=== PATIENT | female | born 1995 | race Caucasian/White ===

== ENCOUNTER → 2020-12-12 12:26 | Outpatient (CLI) | payer OTHER, SELFPAY ==
[2020-12-12 13:41] LABS: Absolute Lymphocyte Count 2.17 X10^3/uL (0.83-4.51); Absolute Neutrophil Count 4.7 X10^3/uL (2.0-7.7); Basophil# 0.06 X10^3/uL; Basophil% 0.8 % (0-1); Eosinophil# 0.12 X10^3/uL; Eosinophils% 1.6 % (0-5); Hematocrit 43.1 % (37-47); Hemoglobin 14.4 g/dL (12.0-15.0); Lymphocyte # 2.17 X10^3/ul (0.83-4.51); Lymphocyte % 28.6 % (19-41); Mean Corp Hgb Conc 33.4 g/dL (32-36); Mean Corpuscular Hgb 29.8 pg (27.0-32.0); Mean Corpuscular Volume 89.2 fL (81-99); Mean Platelet Vol. 9.6 fl (6.2-12.0); Monocyte# 0.58 X10^3/uL; Monocyte% 7.6 % (0-10); NRBC Flagged by Analyzer 0 % (0-5); Neutrophil # 4.66 X10^3/uL (2.7-7.7); Neutrophil % 61.3 % (47-70); Platelet Count 268 K/mm3 (150-450); RBC Distribution Width CV 14.2 % (11.6-14.6); RBC Distribution Width SD 46.2 fl (35.1-43.9); Red Blood Count 4.83 M/mm3 (4.2-5.4); White Blood Count 7.6 K/mm3 (4.4-11.0)
[2020-12-12 14:26] LABS: HIV - WCH Non-Reactive (Nonreactive); Hepatitis B Surface Antigen Non-Reactive (Nonreactive); Hepatitis C Antibody Non-Reactive (Nonreactive); Rubella IgG Reactive (Nonreactive); Syphilis Antibodies Non-reactive
[2020-12-15 03:07] LABS: Chlamydia By Nucleic Acid AMP Negative (Negative)
[2020-12-15 10:22] LABS: Gonococcus By Nucleic Acid AMP Negative (Negative)
[2020-12-18 12:01] LABS: HPV Reflexed? NOT INDICATED
== END ==
PROVIDERS: Visit Provider Obstetrics & Gynecology
DX: Z34.81 Encounter for supervision of other normal pregnancy, first trimester (principal); Z12.4 Encounter for screening for malignant neoplasm of cervix; Z11.3 Encounter for screening for infections with a predominantly sexual mode of transmission
CPT/HCPCS: 36415; 85025; 86703; 86762; 86780; 86803; 87086; 87088; 87340; 87491; 87591; 88175; G0145

== ENCOUNTER → 2021-04-23 16:33 | Outpatient (CLI) | payer OTHER, SELFPAY ==
[2021-04-23 17:13] LABS: Hematocrit 35.2 % (37-47); Hemoglobin 11.5 g/dL (12.0-15.0); Mean Corp Hgb Conc 32.7 g/dL (32-36); Mean Corpuscular Hgb 30.6 pg (27.0-32.0); Mean Corpuscular Volume 93.6 fL (81-99); Mean Platelet Vol. 10.3 fl (6.2-12.0); Platelet Count 236 K/mm3 (150-450); RBC Distribution Width CV 14.8 % (11.6-14.6); RBC Distribution Width SD 50.3 fl (35.1-43.9); Red Blood Count 3.76 M/mm3 (4.2-5.4); White Blood Count 11.4 K/mm3 (4.4-11.0)
[2021-04-23 17:30] LABS: Glucose Challenge Gest 1H 50g 95 mg/dL (70-140)
== END ==
PROVIDERS: Visit Provider Obstetrics & Gynecology
DX: Z34.82 Encounter for supervision of other normal pregnancy, second trimester (principal)
CPT/HCPCS: 36415; 82950; 85027

== ENCOUNTER 2021-05-24 16:56 | Outpatient (CLI) | payer OTHER, SELFPAY | END 2021-05-24 23:59 | disposition short-term general hospital (02) | LOC: WOBLAB 16:58 | PROVIDERS: Visit Provider Obstetrics & Gynecology | DX: Z67.91 Unspecified blood type, Rh negative (principal) | CPT/HCPCS: 36415; 86850 ==

== ENCOUNTER 2021-07-16 16:40 | Outpatient (CLI) | payer OTHER, SELFPAY | END 2021-07-16 23:59 | disposition home or self-care (01) | LOC: LABSPEC 16:45 | PROVIDERS: Visit Provider Obstetrics & Gynecology | DX: Z36.85 Encounter for antenatal screening for Streptococcus B (principal) | CPT/HCPCS: 87081 ==

== ENCOUNTER 2021-08-13 06:20 | Inpatient (IN) | payer OTHER, SELFPAY ==
[2021-08-13] VITALS (41 sets, daily range): BP systolic 82–159; BP diastolic 51–129; PULSE 69–110; RESP 16–18; TEMP 36.3–37.7; O2SAT 93–100; BMI 44.8
[2021-08-13] MEDS: Lactated Ringers 1,000 ML 50 ML IV (06:45)
[2021-08-13 06:56] LABS: Absolute Lymphocyte Count 1.52 X10^3/uL (0.83-4.51); Absolute Neutrophil Count 9.4 X10^3/uL (2.0-7.7); Basophil# 0.05 X10^3/uL; Basophil% 0.4 % (0-1); Eosinophil# 0.09 X10^3/uL; Eosinophils% 0.8 % (0-5); Hematocrit 35.4 % (37-47); Lymphocyte # 1.52 X10^3/ul (0.83-4.51); Lymphocyte % 12.7 % (19-41); Mean Corp Hgb Conc 33.9 g/dL (32-36); Mean Corpuscular Hgb 32.4 pg (27.0-32.0); Mean Corpuscular Volume 95.7 fL (81-99); Mean Platelet Vol. 11.3 fl (6.2-12.0); Monocyte# 0.82 X10^3/uL; Monocyte% 6.9 % (0-10); NRBC Flagged by Analyzer 0 % (0-5); Neutrophil # 9.44 X10^3/uL (2.7-7.7); Neutrophil % 78.8 % (47-70); Platelet Count 181 K/mm3 (150-450); RBC Distribution Width CV 16.1 % (11.6-14.6); RBC Distribution Width SD 56.4 fl (35.1-43.9)
--- NOTE | 2021-08-13 07:37 | HP.PCM_ITS ---
History and Physical Date of Admission: 08/13/21 ACOG ANTEPARTUM RECORD - HISTORY AND PHYSICAL (08/13/2021) Name: ERASMO HASKINS History of this : This is a 25 year old [id number] presents at 40 wks + 6 days gestation who presents in early labor. OB Physician: ORTIZ CHÁVEZ MD 's Physician: UNDECIDED ...................................................................... : 1995 Age: 25 Address: [address] [place] [address] Phone: (h) [phone] Insurance Carrier: [employer] [id number] Emergency Contact: CHARLEE HASKINS/ [phone] ...................................................................... Final PARTH: 08/07/21 By Ultrasound: 8 weeks 2 days PARITY: (G-Total Pregnancies P-Fullterm,Premature,Induced AB,Spont AB, Ectopics, Multiple,Living) PARTH CONFIRMATION: By LMP: 10/23/20 By First Ultrasound Exam: 08/07/21 Final PARTH: 08/07/21 OB PROBLEM LIST: Enc office Childbirth/ classes May or Jun 2021. EPDS 12 Declines genetic and carrier screening Rh negative ALLERGIES: No Known Drug Allergies MEDICATIONS: DHA 200 mg capsule One capsule by mouth daily Zofran 4 mg tablet 1 PO every four to six hours PRN nausea SOCIAL HISTORY: Smoking - Never Alcohol Use - occasionally not while Diet - balanced Diet and Used to drink coffee- now causes nausea. water tries for 5-6+ bottles Lifestyle - Exercise - active work and Enc to walk 20 min most days. Employer - [employer] Job Description - Sr. Manager Corporate Communications Illicit Drug Use - denies use of street drugs Sexual Activity - Residence - lives with Place of - [place] Hours Worked - 40 hours per week Spouse-Sig Other Name - Charlee Lindenmariaa Spouse-Sig Other Occupation - Dental Technology Advisor Spouse-Sig Other Phone No - [phone] PRIOR DELIVERY HISTORY DEL DATE GEST LAB WT LB WT OZ TYPE ANES LABOR TX ANTEPARTUM FLOW CHART VISIT GE RTC FU F F MO U U DATE WK MD WKS HT PN HR M SS BP ED WT MO GL D EF ST __ ____ ___ __ __ ___ __ __ __ ___ __ __ __ ___ __ 21 Mar 39 JM 1 39 V + + 130/84 0 275 - - 1 14 Mar 38 CM 1 39 V + + 122/80 sl 271 - - 1 07 Mar 37 JM 1 37 V + + 130/82 sl 272 - - 1 28 Feb 36 JM 1 36 V + + 126/74 sl 273 - - 1 21 Feb 35 JM 1 35 V + + 126/80 0 269 - - 10 Feb 34 JM 2 34 V + + 124/82 0 268 - - Jun 18 JM 2 31 V + + O 114/78 tr 262 tr ne Jun 16 JM 2 29 - + + 122/70 tr 259 ne ne May 11 JM 4 24 - + + 118/64 0 259 tr - Apr 06 JM 4 19 - on + 114/84 0 246 tr - Mar 03 JM 4 16 - + O 120/70 0 243 tr - Jan 28 JMW 4 U+ O 124/70 0 243 tr - Dec 24 JM 4 8 - on O 114/82 0 244 tr - ANTEPARTUM NOTE(S): Aug 06 2021: no complaints Jul 30 2021: doing well Jul 23 2021: Jul 16 2021: Jul 09 2021: Jun 28 2021: doing well Jun 11 2021: Still has nausea, medicine helps but makes tired. FM well May 24 2021: FM well, Heartburn, N/V, Rhogam given Apr 23 2021: doing well Mar 19 2021: n/v episodes, can't lay on back Feb 20 2021: see note Jan 25 2021: Feeling well, some morning sickness. AM Dec 28 2020: genetic packet completed, nausea COMPREHENSIVE ANTEPARTUM NOTE(S): Aug 06 2021: Erasmo is 39w6d here for PNV good FM no edema states she is doing well and would like to discuss her inductions. BR Aug 06 2021: 39 weeks, had to reschedule induction of labor for 08/15/2021 7 PM Cytotec 41 weeks. JM Jul 30 2021: Erasmo is 38w6d here for PNV. Good FM. Slight edema. Would like cervix checked today. MR Jul 30 2021: 38/6w. Feeling well. Scheduled IOL 08/08 PM cytotec. F/u 1w. CM Jul 24 2021: H taken to OB.tkg Jul 23 2021: Erasmo is 37w6d here for PNV. Good FM slight edema. would like cervix checked today. BR Jul 23 2021: 37 weeks, GBS negative. Cervical exam 1 cm. JM Jul 16 2021: Erasmo is 36w6d here for PNV. Good FM slight edema. GBS LARC today. BR Jul 16 2021: 36 weeks, GBS collected today. JM Jul 09 2021: Erasmo is 35w6d here for PNV good FM (states she has slowed down abit) no edema. Does C/O lower back pain that will shoot into left leg. BR Jul 09 2021: 35 weeks, left hip pain. Sciatic and piriformis pain. Discussed stretching. GBS next visit. JM Jun 28 2021: Erasmo is 34w3d here for PNV good FM sl edema. No concerns or problems. BR Jun 28 2021: 34 weeks, back pain or pressure. GBS next visit. JM Jun 11 2021: 31wk, improved nausea. JM May 24 2021: 29wk, Rhogam today. Nausea and GERD with holidays, Pepcid and rx Zofran. JM Apr 23 2021: Erasmo, 24w6d, is here today for PNV and 1hr GTT. Positive movement. No edema that she has noticed. She will need antibody screen and Rhogam at next visit. BR Apr 23 2021: 24wk, 1hr GTT wnl. JM Mar 19 2021: Erasmo is here w/ SO for PNV at 04/11. Good FM. No edema present. Reports n/v episodes over the weekend. Pt unable to lie on her back as it exacerbates her sx's. No other concerns expressed. Glucola instruction and supplies given. MK Mar 19 2021: 19 weeks, anatomy ultrasound within normal limits. Educated on Covid vaccination in . mild nausea, for 2 days, likely stomach bug, FOB also sick at the same time. Feeling better now. 1 hour GTT next visit. Feb 20 2021: Erasmo is being seen for PNV. Pt is 16 weeks today. Pt comlains of headaches, she has been going to the chiropractor once a week. She does take tylenol when agarwal are really bad which sometimes helps. Pt also complains of having diarrhea last week going about 3-4x/day which lasted about a week. Pt states she has been better this week. AM Feb 20 2021: 16wk, 'headaches' in her lower neck and low back. Sees Chiropractor. Anatomy ultrasound next visit. AMAYA REVIEW OF SYSTEMS: GENERAL - Denies fever, or chills SKIN - Denies rash, new skin lesions, or change in moles EYES - Denies blurred vision, or change in visual acuity EARS - Denies ear pain, or difficulty hearing NOSE - Denies nasal congestion, discharge, or bleeding MOUTH - Denies sore throat, or difficulty swallowing NECK - Denies pain or swelling RESPIRATORY - Denies shortness of breath, cough, wheezing CARDIOVASCULAR - Denies palpitations, chest pain, orthopnea, PND, peripheral edema, syncope or claudication GASTROINTESTINAL - Denies nausea, vomiting, diarrhea, constipation, Denies abdominal pain, melena and or bright red blood GENITOURINARY - Denies dysuria, frequency of urination, urgency, or hesitancy MUSCULOSKELETAL - Denies joint or muscle pain, or back pain NEUROLOGICAL - Denies localized numbness, weakness, or tingling PSYCHIATRIC - Denies depression, anxiety, substance abuse or suicide attempts ENDOCRINE - Denies heat or cold intolerance, weight loss or gain, increasing thirst HEMATO-IMMUNOLOGIC - Denies easy bruising, bleeding, oral ulcerations or recurrent infections GENETICS SCREENING: Age 35+ years: No Thalassemia: No Neural Tube Defect: No Down Syndrome: No QUAN-SACHS: No Sickle Cell Disease: No Hemophilia: No Musc. Dystrophy: No Cystic Fibrosis: No-declines screening [place] Chorea: No Mental Retardation: No Fragile X: No Other genetic: No Other defects: No SABs/still births: No Drugs since LMP: No INFECTION HISTORY: High risk AIDS: No High risk Hepatitis: No Exposed to TB: No Exposed to Herpes: No Rash/viral illness since LMP: No History of STD: No MENSTRUAL HISTORY: *Menses Amount/Duration: irregularMenses Regularity: missed periodsFrequency: variableMenarche (Age Onset): 12* PAST SUMMARY: PARITY: 1. Total Pregnancies............ 1 2. Full Term Pregnancies........ 0 3. Premature.................... 0 4. Abortions - Induced.......... 0 5. Abortions - Spontaneous...... 0 6. Ectopics..................... 0 7. Multiple Births.............. 0 8. Living Children.............. 0 PHYSICAL EXAMINATION General Appearence: 25 yo female in no acute distress Vital Signs: AF, VSS Heart: RRR without rubs or gallops Lungs: CTA x 2 Breasts: deferred Abdomen: gravid Pelvis: Cervix: Presentation: cephalic Station: Fetus: Size: AGA Movement: present Heart: present LAB TEST(S) ORDERED SINCE:11/10/20 04/23/2021 GLUCOSE CHALLENGE GEST 1H 50G 04/23/2021 CBC-COMPLETE BLOOD CNT NO DIFF 03/23/2021 Other 12/18/2020 PAP I-G W/RFX HRHPV-APTIMA 12/15/2020 CHLAMYDIA/GC PILAR APTIMA 12/14/2020 URINE CULTURE 12/12/2020 RUBELLA IGG 12/12/2020 T AND S-NO CHARGE W/PNP 12/12/2020 L509.8000 12/12/2020 HIV - [facility] 12/12/2020 HEPATITIS C ANTIBODY 12/12/2020 HEPATITIS B SURFACE ANTIGEN 12/12/2020 CBC W/DIFF, AUTOMATED 08/13/2021 COVID 19 AG RAPID (RN COLLECT) 08/13/2021 CBC W/DIFF, AUTOMATED 07/19/2021 RULE OUT BETA STREP (GRP. B) 05/24/2021 [id number] == ==== Order Observation Description Value Ref_Range A* Site == ==== COVID 19 AG RAP NOTE [facility] CBC W/DIFF, AUT NOTE [facility] CBC W/DIFF, AUT WBC 12.0 K/mm3 4.4-11.0 H ML CBC W/DIFF, AUT RBC 3.70 M/mm3 4.2-5.4 L ML CBC W/DIFF, AUT HGB 12.0 g/dL 12.0-15.0 ML CBC W/DIFF, AUT HCT 35.4 37-47 L ML CBC W/DIFF, AUT MCV 95.7 fL 81-99 ML CBC W/DIFF, AUT MCH 32.4 pg 27.0-32.0 H ML CBC W/DIFF, AUT MCHC 33.9 g/dL 32-36 ML CBC W/DIFF, AUT RDW CV 16.1 11.6-14.6 H ML CBC W/DIFF, AUT RDW SD 56.4 fl 35.1-43.9 H ML CBC W/DIFF, AUT PLT 181 K/mm3 150-450 ML CBC W/DIFF, AUT MPV 11.3 fl 6.2-12.0 ML CBC W/DIFF, AUT NEUT% 78.8 47-70 H ML CBC W/DIFF, AUT LY% 12.7 19-41 L ML CBC W/DIFF, AUT MONO% 6.9 0-10 ML CBC W/DIFF, AUT EO% 0.8 0-5 ML CBC W/DIFF, AUT BASO% 0.4 0-1 ML CBC W/DIFF, AUT IG% 0.400 0.0-0.9 ML IG% - Immature Granulocytes (promyelocytes, myelocytes and metamyelocytes) > 1% indicates that a LEFT SHIFT is Present. CBC W/DIFF, AUT ABSOLUTE NEUT 9.4 X10 3/uL 2.0-7.7 H ML CBC W/DIFF, AUT ABSOLUTE LYMPH 1.52 X10 3/uL 0.83-4.51 ML CBC W/DIFF, AUT NUCLEATED RBC 0 0-5 ML RULE OUT BETA S NOTE [facility]~[address] [place], [address]~ [id number] AB SCREEN GEL NEGATIVE ML GLUCOSE CHALLEN NOTE [facility] GLUCOSE CHALLEN GLU GEST 50G 1H 95 mg/dL 70-140 ML CBC-COMPLETE BL NOTE [facility] CBC-COMPLETE BL WBC 11.4 K/mm3 4.4-11.0 H ML CBC-COMPLETE BL RBC 3.76 M/mm3 4.2-5.4 L ML CBC-COMPLETE BL HGB 11.5 g/dL 12.0-15.0 L ML CBC-COMPLETE BL HCT 35.2 37-47 L ML CBC-COMPLETE BL MCV 93.6 fL 81-99 ML CBC-COMPLETE BL MCH 30.6 pg 27.0-32.0 ML CBC-COMPLETE BL MCHC 32.7 g/dL 32-36 ML CBC-COMPLETE BL RDW CV 14.8 11.6-14.6 H ML CBC-COMPLETE BL RDW SD 50.3 fl 35.1-43.9 H ML CBC-COMPLETE BL PLT 236 K/mm3 150-450 ML CBC-COMPLETE BL MPV 10.3 fl 6.2-12.0 ML Other Unusual lab scanned [facility] URINE CULTURE NOTE [facility] PN N [facility]~[address] [place], [address]~ T AND AB SCREEN GEL NEGATIVE ML HEPATITIS C ANT NOTE [facility] HEPATITIS C ANT HEPATITIS C AB Non-Reactive Nonreactive ML Non Reactive: < 0.8 Equivocal: >/= 0.8 to < 1.0 Reactive: >/= 1.0 The CDC recommends that a reactive/equivocal HCV antibody result be followed up by the HCV Nucleic Acid Amplification test ([id number]) HEPATITIS B NICOLAS NOTE [facility] HEPATITIS B NICOLAS HEP B SURF AG Non-Reactive Nonreactive ML HIV - [facility] NOTE [facility] HIV - [facility] HIV Non-Reactive Nonreactive ML L509.8000 NOTE [facility] L509.8000 SYPHILIS ABS Non-reactive ML RUBELLA IGG NOTE [facility] RUBELLA IGG RUBELLA IGG Reactive Nonreactive ML Antibody Results Interpretation of Immune Status Non Reactive Presumed Non-Immune Equivocal Equivocal Reactive Presumed Immune CBC W/DIFF, AUT NOTE [facility] CBC W/DIFF, AUT WBC 7.6 K/mm3 4.4-11.0 ML CBC W/DIFF, AUT RBC 4.83 M/mm3 4.2-5.4 ML CBC W/DIFF, AUT HGB 14.4 g/dL 12.0-15.0 ML CBC W/DIFF, AUT HCT 43.1 37-47 ML CBC W/DIFF, AUT MCV 89.2 fL 81-99 ML CBC W/DIFF, AUT MCH 29.8 pg 27.0-32.0 ML CBC W/DIFF, AUT MCHC 33.4 g/dL 32-36 ML CBC W/DIFF, AUT RDW CV 14.2 11.6-14.6 ML CBC W/DIFF, AUT RDW SD 46.2 fl 35.1-43.9 H ML CBC W/DIFF, AUT PLT 268 K/mm3 150-450 ML CBC W/DIFF, AUT MPV 9.6 fl 6.2-12.0 ML CBC W/DIFF, AUT NEUT% 61.3 47-70 ML CBC W/DIFF, AUT LY% 28.6 19-41 ML CBC W/DIFF, AUT MONO% 7.6 0-10 ML CBC W/DIFF, AUT EO% 1.6 0-5 ML CBC W/DIFF, AUT BASO% 0.8 0-1 ML CBC W/DIFF, AUT IG% 0.100 0.0-0.9 ML IG% - Immature Granulocytes (promyelocytes, myelocytes and metamyelocytes) > 1% indicates that a LEFT SHIFT is Present. CBC W/DIFF, AUT ABSOLUTE NEUT 4.7 X10 3/uL 2.0-7.7 ML CBC W/DIFF, AUT ABSOLUTE LYMPH 2.17 X10 3/uL 0.83-4.51 ML CBC W/DIFF, AUT NUCLEATED RBC 0 0-5 ML PAP I-G W/RFX H NOTE [facility] PAP I-G W/RFX H DIAG Comment . [facility]CI NEGATIVE FOR INTRAEPITHELIAL LESION OR MALIGNANCY. PAP I-G W/RFX H ADEQ Comment . [facility] Satisfactory for evaluation. No endocervical component is identified. An endocervical component is not commonly seen in the patient. PAP I-G W/RFX H PERFORM Comment . LCI Shree Gee Last Dipper (ASCP) This liquid based ThinPrep(R) pap test was screened with the use of an image guided system. PAP I-G W/RFX H COMM . . [facility] PAP I-G W/RFX H PAPSMR Comment . LCI The Pap smear is a screening test designed to aid in the detection of premalignant and malignant conditions of the uterine cervix. It is not a diagnostic procedure and should not be used as the sole means of detecting cervical cancer. Both false-positive and false-negative reports do occur. PAP I-G W/RFX H HPV RFLX Comment . LCI The HPV DNA reflex criteria were not met with this specimen result therefore, no HPV testing was performed. Performed at: [address] [id number] Burner Machine Operator: Suzette Motta MD, Phone: [phone] CHLAMYDIA/GC NA NOTE [facility] CHLAMYDIA/GC NA CHLAMY,NUC ACID Negative Negative [facility]CI CHLAMYDIA/GC NA GC BY NUC ACID Negative Negative [facility] Performed at: = - [address], [place] [id number] Burner Machine Operator: Suzette Motta MD, Phone: [phone] *Negative results from patients with symptom onset beyond five days should be treated as presumptive and confirmed by a molecular assay if clinically necessary. Negative results should not be used as the sole basis for treatment or for patient management. SARS-CoV-2 Ag Resp Ql IA.rapid *Positive results do not differentiate between SARS-CoV and SARS-CoV-2. If differentation of the specific SARS virus is desired an additional sample and an additional order is required. SARS-CoV-2 Ag Resp Ql IA.rapid * This test has not been FDA cleared or approved; the test has been authorized by FDA under an Emergency Use Authorization (EAU) for use by laboratories certified under CLIA that meet the requirements to perform moderate, high, or waived complexity tests. SARS-CoV-2 Ag Resp Ql IA.rapid Normal Reference Range: Negative SARS-CoV-2 (COVID 19) Negative RAPID METHOD Quidel Anaya Analyzer JAYESH Group B Beta Streptococcus is not isolated. Presumptive Lactobacillus sp. [place] Count 11,000-25,000 A NEGATIVE == ==== Impression /Plan: 40 wks + 6 days intrauterine in early labor. Preparations in progress for delivery.
[2021-08-13] MEDS: Lactated Ringers 500 ML 999 ML IV ×3 (07:44→17:25)
[2021-08-13] MEDS: Oxytocin 30 units/NS 500 ml 30 UNITS/500 ML IV.SOLN IV (08:53)
[2021-08-13] MEDS: fentaNYL-bupivacaine (epidural) 100 ML BAG EPIDURAL ×3 (08:54→18:18)
--- NOTE | 2021-08-13 12:26 | PCM.PN.OB ---
Subjective Subjective Feeling pressure with contractions. Overall comfortable with epidural Objective Data Objective Data Vital Signs: Vital Signs Temp Pulse BP Pulse Ox 98.1 F 87 116/61 100 08/13/21 12:14 08/13/21 12:14 08/13/21 12:14 08/13/21 12:14 Weight: 277 lb 9.6 oz Body Mass Index (BMI) 44.8 Intake & Output: Intake and Output for Last 24 Hours 08/11/21 08/12/21 08/13/21 23:59 23:59 23:59 Intake Total 589.50 / 589.50 Balance 589.50 / 589.50 Lab / Micro Data Result Diagrams: 08/13/21 06:45 Labs: Laboratory Results - last 24 hr 08/13/21 06:45: WBC 12.0 H, RBC 3.70 L, Hgb 12.0, Hct 35.4 L, MCV 95.7, MCH 32.4 H, MCHC 33.9, RDW Std Deviation 56.4 H, RDW Coeff of Melissa 16.1 H, Plt Count 181, MPV 11.3, Immature Gran % (Auto) 0.400, Neut % (Auto) 78.8 H, Lymph % (Auto) 12.7 L, [place] % (Auto) 6.9, Eos % (Auto) 0.8, Baso % (Auto) 0.4, Absolute Neuts (auto) 9.4 H, Absolute Lymphs (auto) 1.52, Nucleated RBC % 0 08/13/21 06:45: Blood Type A NEGATIVE, Antibody Screen NEGATIVE Micro: Microbiology 08/13/21 06:45 Nasal Secretion SARS-CoV-2 Antigen (Rapid) - Final Physical Exam Const alert, oriented x3, no apparent distress, average body habitus, healthy appearing and well nourished HEENT normocephalic and moist oral mucous membranes Head and Scalp: atraumatic Face and Sinus: normal facial exam Neck full ROM Resp normal respiratory effort, no retractions and no use of accessory muscles Narrative: Cervical exam /-2. AROM blood-tinged fluid Extremity normal to inspection and full ROM Psych mental status grossly normal, affect normal, speech normal and activity/motor behavior normal Assessment & Plan (1) : PLAN: Patient seen and examined. Feeling contractions but overall comfortable with epidural. AROM blood-tinged fluid. We will continue current management
[2021-08-13] MEDS: Ondansetron 4 MG/2 ML Vial IV ×2 (12:41→17:32)
[2021-08-13] MEDS: Lactated Ringers 1,000 ML 200 ML IV ×2 (13:13→17:39)
[2021-08-13] MEDS: Acetaminophen 500 MG Tablet PO (17:32)
[2021-08-13] MEDS: Mag Hydrox/Al Hydrox/Simeth 30 ML UDC PO (17:32)
[2021-08-13] MEDS: Sodium Citrate/Citric Acid 30 ML UDC PO (20:45)
--- NOTE | 2021-08-13 22:39 | EX.PCM.OBRPT ---
Maternal Data Information Final PARTH: 08/07/21 Final PARTH Source: US <20 weeks Details Operative Information Date of Procedure: 08/13/21 Pre-Operative Diagnosis: Encarnacion intrauterine at term. First stage arrest. intolerance of labor. Post-Operative Diagnosis: Encarnacion intrauterine at term. First stage arrest. intolerance of labor. Asynclitic lie. Indications Narrative: 25-year-old G1, P0 at 40/6 weeks admitted in early labor. Patient progressed throughout labor to 8 cm. No cervical change for approximately 6 hours with [address]PC in place. Arrest of dilation diagnosed, intolerance of labor. Decision for primary section made. All risk, benefits, alternatives discussed with the patient. Risks include but are not limited to: Risk of [place] point transfusion, infection, injury to surrounding tissue including bowel or bladder requiring prolonged Paulino catheter use, VTE, ICU admission. Patient aware and consented. Classification: LEESA Procedure Type: T-incision Type of Anesthesia: Epidural Antibiotic Given: Ancef 3 grams IV x1 and Zithromax 500 mg/5 mL X1 Estimated Blood Loss: 1000 cc Fluids Replaced: 1300 cc Findings Description of Procedure: Procedure: Patient taken to the operating room. Epidural dosed. Placed in the supine position with left lateral tilt. Prepped and draped in the usual sterile fashion, vaginal prep completed as well. Pfannenstiel skin incision made with scalpel and carried down through underlying subcutaneous tissue. Fascia nicked on either side of the midline and extended with Quinn scissors. Gabriela clamps grasped. Fascial edge which was tented up and underlying rectus muscles were dissected off bluntly and sharply at midline using Quinn scissors. Gabriela clamps moved to inferior fascial edge which was tented up and underlying rectus muscles were dissected off bluntly and sharply at midline. Rectus muscles were noted to be , peritoneum grasped with 2 hemostats and incised medially to enter peritoneum. Peritoneal entry extended bluntly. Bladder blade placed. Vesicouterine peritoneum identified. Low transverse uterine incision made with scalpel and entered bluntly. Extended bluntly. Hand placed into the uterine cavity noting head low in pelvis, hand from below requested. Attempted to elevate head was maintained while attempt to deliver head abdominally made. Surgeon switched sides twice to change angle. Head was noted to be asynclitic with occiput to maternal right. Head close to pubic arch. Uterine incision teed vertically with banjo scissors and extended further with banjo scissors again. Head was not elevated. Attempt to deliver breech was made twice, however body was not unable to be delivered breech. Attempt by surgeon was made to to flex and elevate head through the pelvis, unsuccessful. Top gloves taken off. Dr. Mukesh Galindo was called for assistance. Continued efforts to elevate and deliver head made by surgeon and public aid eligibility assistant. Head delivered followed by body, no nuchal cord, cord clamped and cut baby handed to waiting nursing staff. Shortly after delivery Dr. Mukesh Galindo arrived in room. Surgeon changed gown and gloves and scrubbed again. Placenta delivered spontaneously. Hysterotomy inspected closely for extensions. Minimal extension noted at the right angle of the hysterotomy. Bladder noted to be far below the hysterotomy. T of incision was closed with a running locking stitch followed by running baseball stitch. Hemostatic with 1 [id number]. Transverse incision closed with a running locking stitch, followed by second vertical imbricating stitch. Posterior of uterus down to the level of the cervix inspected and palpated prior to returning uterus into the abdominal cavity. Bladder blade replaced and hysterotomy inspected, hemostatic. Peritoneum closed with a running stitch. Fascia closed with a running stitch. Subcutaneous tissue irrigated. Subcutaneous tissue closed with running stitch. Skin closed with running subcuticular stitch. At the end of the procedure all needle, lap, sponge counts were correct x3. Urine output: 50 cc, blood-tinged in Paulino bag but clear in tubing. Plan for 24 hours of Ancef for vaginal manipulation. Do not recommend TOLAC due to T-incision on uterus. Amniotic Fluid Description: Clear Cord Entanglement: None Infant A Gender: Female (1 minute): 5 (5 minute): 8
[2021-08-13] MEDS: Oxytocin 30 units/NS 500 ml 30 UNITS/500 ML IV.SOLN 167 UNITS IV (22:45)
[2021-08-13] MEDS: Ketorolac 30 MG/ML Syringe IV (23:12)
[2021-08-13] MEDS: 0.9% Saline Lock 10 ML Syringe IV (23:13)
[2021-08-13] MEDS: Acetaminophen 500 MG Tablet 1000 MG PO (23:37)
[2021-08-14] VITALS (22 sets, daily range): BP systolic 100–148; BP diastolic 39–78; PULSE 79–109; RESP 14–18; TEMP 36.3–38.4; O2SAT 92–97
[2021-08-14] MEDS: Lactated Ringers 1,000 ML 100 ML IV ×2 (01:33→15:48)
--- NOTE | 2021-08-14 03:16 | NURSING ---
report received from hazel ZAMBRANO . this RN to assume care of pt at this time
[2021-08-14] MEDS: Cefazolin 2 GM in 0.9% Normal Saline 100 ML IV ×4 (03:30→22:18)
[2021-08-14] MEDS: 0.9% Saline Lock 10 ML Syringe IV ×3 (05:42→22:18)
[2021-08-14] MEDS: Acetaminophen 500 MG Tablet 1000 MG PO ×3 (05:42→17:41)
[2021-08-14] MEDS: Ketorolac 30 MG/ML Syringe IV ×3 (05:42→17:41)
[2021-08-14 07:53] LABS: Hematocrit 29.4 % (37-47); Mean Corpuscular Hgb 31.8 pg (27.0-32.0); Mean Corpuscular Volume 93.6 fL (81-99); Mean Platelet Vol. 11.3 fl (6.2-12.0); Platelet Count 147 K/mm3 (150-450); RBC Distribution Width CV 16.3 % (11.6-14.6); RBC Distribution Width SD 54.7 fl (35.1-43.9); Red Blood Count 3.14 M/mm3 (4.2-5.4)
--- NOTE | 2021-08-14 08:17 | PCM.PN.OB ---
Subjective Subjective Postop day 1. Feeling well. Sore. Lochia minimal. Working on breast-feeding. Has gotten up to stand, was a little dizzy with this first time. Objective Data Objective Data Vital Signs: Vital Signs Temp Pulse Resp BP Pulse Ox 97.4 F L 84 16 109/54 L 95 08/14/21 08:01 08/14/21 08:01 08/14/21 08:01 08/14/21 08:01 08/14/21 08:01 Oxygen Delivery Method Room Air Weight: 125.917 kg Body Mass Index (BMI) 44.8 Intake & Output: Intake and Output for Last 24 Hours 08/12/21 08/13/21 08/14/21 23:59 23:59 23:59 Intake Total 3932.83 / 3932.83 833.17 / 833.17 Output Total 700 / 700 450 / 450 Balance 3232.83 / 3232.83 383.17 / 383.17 Lab / Micro Data Result Diagrams: 08/14/21 07:35 Labs: Laboratory Results - last 24 hr 08/13/21 06:45: Blood Type A NEGATIVE, Antibody Screen NEGATIVE 08/14/21 00:45: Screen NEGATIVE, Baby's Blood Type A POSITIVE, Baby's SOHAN NEGATIVE 08/14/21 07:35: WBC 14.0 H, RBC 3.14 L, Hgb 10.0 L, Hct 29.4 L, MCV 93.6, MCH 31.8, MCHC 34.0, RDW Std Deviation 54.7 H, RDW Coeff of Melissa 16.3 H, Plt Count 147 L, MPV 11.3 Micro: Microbiology 08/13/21 06:45 Nasal Secretion SARS-CoV-2 Antigen (Rapid) - Final ABG Data ABG results: ABG 08/13/21 21:55 Specimen Type Cancelled Sample Site Cancelled O2 % Cancelled Cord VBG pH Cancelled Cord VBG pCO2 Cancelled Cord VBG pO2 Cancelled Cord VBG HCO3 Cancelled Cord VBG Total CO2 Cancelled Cord VBG Base Excess Cancelled Cord VBG O2 Sat Cancelled Respiration Rate Cancelled O2 Delivery Device Cancelled Vent Mode Cancelled Mean Airway Pressure Cancelled POC PEEP Cancelled Peak Inspir Pressure Cancelled POC Pressure Suppt Cancelled Pressure High Cancelled Pressure Low Cancelled Time High Cancelled Time Low Cancelled EPAP Cancelled IPAP Cancelled Crit Call To/Read Back Cancelled Blood Gas Notified Whom Cancelled Blood Gas Notified Time Cancelled Clinical Comments Cancelled Physical Exam Const alert, oriented x3 and no apparent distress HEENT normocephalic Head and Scalp: atraumatic Neck full ROM Resp normal respiratory effort Cardio regular rate GI normal to inspection, nondistended, normoactive bowel sounds GI Narrative: Uterus 2 cm below umbilicus. Dressing clean and dry. Narrative: Urine blood-tinged in Paulino bag. Back/Spine normal ROM Extremity normal to inspection Extremity Narrative: Minimal pedal edema Neuro no focal motor deficits and no sensory deficits noted Psych mental status grossly normal and affect normal Assessment & Plan (1) Delivery by section: PLAN: Postop day 1 status post primary section for for stage arrest, nonreassuring heart tones. Complicated by acute blood loss anemia secondary to surgery, to iron supplement on discharge. Patient feeling well with some soreness. Breast-feeding. Home postop day 2?3. VTE prophylaxis: Lovenox 40 mg twice daily. (2) Other acute postprocedural pain: (3) Acute blood loss as cause of postoperative anemia:
[2021-08-14] MEDS: Senna/Docusate Sodium 1 Tablet PO (10:39)
[2021-08-14] MEDS: Enoxaparin 40 MG/0.4 ML Syringe SC ×2 (10:39→22:16)
[2021-08-14] MEDS: oxyCODONE 5 MG Tablet PO (22:15)
[2021-08-15] VITALS (7 sets, daily range): BP systolic 101–135; BP diastolic 57–73; PULSE 70–85; RESP 15–18; TEMP 36.3–36.9; O2SAT 16–100
[2021-08-15] MEDS: Acetaminophen 500 MG Tablet 1000 MG PO ×4 (00:02→18:09)
[2021-08-15] MEDS: Ibuprofen 600 MG Tablet PO ×2 (00:02→05:27)
[2021-08-15] MEDS: Clindamycin 900 MG/50 ML BAG 150 MG IV ×3 (00:23→16:16)
[2021-08-15 01:35] LABS: Absolute Lymphocyte Count 0.72 X10^3/uL (0.83-4.51); Absolute Neutrophil Count 9.2 X10^3/uL (2.0-7.7); Basophil# 0.02 X10^3/uL; Basophil% 0.2 % (0-1); Eosinophil# 0.02 X10^3/uL; Eosinophils% 0.2 % (0-5); Hematocrit 27.3 % (37-47); Hemoglobin 9.2 g/dL (12.0-15.0); Lymphocyte # 0.72 X10^3/ul (0.83-4.51); Lymphocyte % 6.8 % (19-41); Mean Corp Hgb Conc 33.7 g/dL (32-36); Mean Corpuscular Hgb 31.8 pg (27.0-32.0); Mean Corpuscular Volume 94.5 fL (81-99); Monocyte# 0.53 X10^3/uL; NRBC Flagged by Analyzer 0 % (0-5); Neutrophil # 9.17 X10^3/uL (2.7-7.7); Neutrophil % 87.2 % (47-70); Platelet Count 169 K/mm3 (150-450); RBC Distribution Width CV 16.7 % (11.6-14.6); Red Blood Count 2.89 M/mm3 (4.2-5.4); White Blood Count 10.5 K/mm3 (4.4-11.0)
--- NOTE | 2021-08-15 08:40 | PN.OBGYN_ITS ---
Subjective Subjective Patient without complaints. Tolerating diet well. Fever last evening 101+ but afebrile at present. Minimal vaginal bleeding and tenderness reported. Breast- feeding going well. Currently on triple antibiotics. Objective Data Objective Data Dressing is clean and dry. Good urine output. White count has returned to normal and hemoglobin okay. Vital Signs: Vital Signs Temp Pulse Resp BP Pulse Ox 98.5 F 85 18 135/66 H 95 08/15/21 04:30 08/15/21 04:30 08/15/21 04:30 08/15/21 04:30 08/15/21 04:30 Oxygen Delivery Method Room Air Weight: 277 lb 9.6 oz Body Mass Index (BMI) 44.8 Intake & Output: Intake and Output for Last 24 Hours 08/13/21 08/14/21 08/15/21 23:59 23:59 23:59 Intake Total 3932.83 / 3932.83 2358.17 / 2358.17 107.5 / 107.5 Output Total 700 / 700 2950 / 2950 500 / 500 Balance 3232.83 / 3232.83 -591.83 / -591.83 -392.5 / -392.5 Lab / Micro Data Result Diagrams: 08/15/21 01:26 Labs: Laboratory Results - last 24 hr 08/15/21 01:26: WBC 10.5, RBC 2.89 L, Hgb 9.2 L, Hct 27.3 L, MCV 94.5, MCH 31.8, MCHC 33.7, RDW Std Deviation 58.0 H, RDW Coeff of Melissa 16.7 H, Plt Count 169, MPV 11.0, Immature Gran % (Auto) 0.600, Neut % (Auto) 87.2 H, Lymph % (Auto) 6.8 L, [place] % (Auto) 5.0, Eos % (Auto) 0.2, Baso % (Auto) 0.2, Absolute Neuts (auto) 9.2 H, Absolute Lymphs (auto) 0.72 L, Nucleated RBC % 0 Micro: Microbiology 08/13/21 06:45 Nasal Secretion SARS-CoV-2 Antigen (Rapid) - Final Assessment & Plan (1) Delivery by section: PLAN: Doing well postoperative day #1 status post primary section for failure to progress. Plan to discontinue antibiotics at midnight tonight if remains afebrile. Continuing present care otherwise.
[2021-08-15] MEDS: 0.9% Saline Lock 10 ML Syringe IV ×2 (08:56→22:24)
[2021-08-15] MEDS: oxyCODONE 5 MG Tablet PO (09:02)
[2021-08-15] MEDS: Senna/Docusate Sodium 1 Tablet PO (10:50)
[2021-08-15] MEDS: Enoxaparin 40 MG/0.4 ML Syringe SC ×2 (10:50→22:24)
[2021-08-15] MEDS: Ketorolac 30 MG/ML Syringe IV ×2 (12:23→18:09)
--- NOTE | 2021-08-15 21:33 | NURSING ---
This RN received during bedside report the information to stop all atbs at 0000 excluding 0200 dose of gent. Information confirmed in physician notification intervention at 0825.
[2021-08-16] MEDS: Acetaminophen 500 MG Tablet 1000 MG PO ×2 (00:12→06:07)
[2021-08-16] MEDS: Ketorolac 30 MG/ML Syringe IV ×3 (00:12→11:59)
[2021-08-16] MEDS: Clindamycin 900 MG/50 ML BAG 150 MG IV (00:12)
[2021-08-16 03:06] VITALS: BP 108/77; PULSE 71; RESP 16; TEMP 36.7
[2021-08-16] MEDS: 0.9% Saline Lock 10 ML Syringe IV (06:07)
[2021-08-16 08:53] VITALS: BP 134/74; PULSE 67; RESP 16; TEMP 36.8; O2SAT 96
--- NOTE | 2021-08-16 09:05 | PCM.DC.BLA ---
Discharge Summary Date of Admission: 08/13/21 Date of Discharge: 08/16/21 Summary: Patient arrived on 08/13/2021 in labor. Progressed in labor but had nonreassuring heart tones and was for primary section on 08/13/2021 complicated by asynclitic and T incision hysterotomy along with acute blood loss anemia. Patient with infection given triple antibiotics. Discharge home on 08/16/2021 Meaningful Use Info Meaningful Use Diagnoses (Choose all that apply): None applicable Discharge Plan Admission Admit Date/Time: 08/13/21 06:20 Primary Reason for Your Visit: labor Attending Provider: Lilia Damon Primary Care Provider: Evelyn Banks,Sharon Primary Instructions Additional Instructions / Restrictions: No heavy lifting over 25 pounds for 2 weeks. No tub baths for 2 weeks. Okay to shower. Regular diet. No intercourse for 4 to 6 weeks. Call if fevers, chills, chest pain, shortness of breath. Follow-up 2 weeks postoperatively, 4 to 6 weeks Discharge Orders/Prescriptions Prescriptions: New oxycodone 5 mg Tablet 5 mg PO Q6H PRN PRN (Reason: Pain Score 7-10) 4 Days Qty: 16 RF: 0 Continued [id number] 1 mg Tablet 1 tab PO DAILY RF: 0 Referrals / Follow Up: Care Physician,No Primary [Primary Care Provider] - Disposition Disposition (needs filled in before D/C Order can be placed): Home, Self Care
--- NOTE | 2021-08-16 09:06 | PCM.PN.OB ---
Subjective Subjective No overnight complaints. Denies fevers chills chest pain shortness of breath Objective Data Objective Data Vital Signs: Vital Signs Temp Pulse Resp BP Pulse Ox 98.2 F 67 16 134/74 H 96 08/16/21 08:53 08/16/21 08:53 08/16/21 08:53 08/16/21 08:53 08/16/21 08:53 Oxygen Delivery Method Room Air Weight: 277 lb 9.6 oz Body Mass Index (BMI) 44.8 Intake & Output: Intake and Output for Last 24 Hours 08/14/21 08/15/21 08/16/21 23:59 23:59 23:59 Intake Total 2358.17 / 2358.17 553.33 / 553.33 107.5 / 107.5 Output Total 2950 / 2950 500 / 500 Balance -591.83 / -591.83 53.33 / 53.33 107.5 / 107.5 Lab / Micro Data Result Diagrams: 08/15/21 01:26 Micro: Microbiology 08/13/21 06:45 Nasal Secretion SARS-CoV-2 Antigen (Rapid) - Final Physical Exam Const alert, oriented x3, no apparent distress, average body habitus, healthy appearing and well nourished HEENT normocephalic and moist oral mucous membranes Head and Scalp: atraumatic Face and Sinus: normal facial exam Eyes PERRL Neck full ROM Resp normal respiratory effort, no retractions and no use of accessory muscles GI GI Narrative: Uterus firm. Bandage clean dry and intact Psych mental status grossly normal, affect normal, speech normal and activity/motor behavior normal Assessment & Plan (1) Delivery by section: PLAN: Postoperative day 3 status post primary section for nonreassuring heart tones, T hysterotomy. infection status post antibiotics afebrile for greater than 24 hours. Patient asymptomatic. Okay to discharge home
[2021-08-16] MEDS: Enoxaparin 40 MG/0.4 ML Syringe SC (10:35)
[2021-08-16] MEDS: Senna/Docusate Sodium 1 Tablet PO (10:37)
--- NOTE | 2021-08-16 17:06 | NURSING ---
This RN has reviewed and agrees with all charting completed by felicia Han RN
== END 2021-08-16 12:20 | disposition home or self-care (01) | DRG 787 ==
LOC: WPOUT 06:25 → WP 06:25
PROVIDERS: Obstetrics & Gynecology; Admitting Provider Obstetrics & Gynecology; Visit Provider Student in an Organized Health Care Education/Training Program
DX: O62.0 Primary inadequate contractions (principal); D62 Acute posthemorrhagic anemia; O90.81 Anemia of the puerperium; O76 Abnormality in fetal heart rate and rhythm complicating labor and delivery; O77.9 Labor and delivery complicated by fetal stress, unspecified; Z3A.40 40 weeks gestation of pregnancy; Z37.0 Single live birth
CPT/HCPCS: 36415; 59025; 59050; 85025; 85027; 85461; 86850; 86900; 86901; 87040; 87426; 90384; 99218; J7120; A4216; G0378; J2405; J2790